=== PATIENT | male | born 1990 | race Caucasian/White ===

== ENCOUNTER 2021-03-26 14:42 | Observation (INO) | payer SELFPAY ==
[~2021-03-26] VITALS: Ht 185 cm; Wt 80.0 kg
--- NOTE | 2021-03-26 15:11 | ED Cardiac General ---
History of Present Illness General Chief Complaint: Cardiac/General Problems Stated Complaint: AFIB Source: patient Exam Limitations: no limitations History of Present Illness Date Seen by Provider: Mar 26, 2021 Time Seen by Provider: 15:00 Initial Comments Patient is a 30-year-old male who presents to the emergency department today with a chief complaint of irregular heartbeat and rapid heartbeat. Patient states that he has had issues with rapid heartbeat since he was a child. He has never had the arrhythmia caught on an EKG. 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 He states today that he feels a little nauseous and "worn out". He states he can feel his heartbeat in his eyes. He denies any recent illnesses such as fevers, chills, cough or congestion. No Covid concerns. He denies black or bloody stools or urinary complaints. He is on no daily medications and does not usually frequent to doctor. Denies any excessive stimulant use, occasionally will drink tea or sodas but states mostly in the last several days he has been drinking water. Patient states symptoms this morning started at around 8 AM. All other review of systems reviewed and negative except as stated. Severity: moderate Activities at Onset: emotional stress, rest Prior CP/Workup: no prior chest pain, no prior cardiac workup NTG SL MAGENTO WEB DEVELOPER: No ASA po MAGENTO WEB DEVELOPER: No Associated Systoms: Nausea/Vomiting (Nausea without vomiting), Shortness of Air (My) Allergies and Home Medications Allergies Coded Allergies: No Known Drug Allergies (Unverified , 03/26/21) Patient Home Medication List Home Medication List Reviewed: Yes Apixaban (Eliquis) 5 Mg Tablet, 5 MG PO BID Prescribed by: KYLIE DE LA TORRE on 03/27/21936 Citalopram Hydrobromide (Celexa) 20 Mg Tablet, 20 MG PO HS, (Reported) Entered as Reported by: TAYO CUBA on 03/26/21 888 Last Action: Reviewed Metoprolol Succinate (Metoprolol Succinate) 25 Mg Tab.er.24h, 25 MG PO DAILY Prescribed by: KYLIE DE LA TORRE on 03/27/21936 Review of Systems Review of Systems Constitutional: see HPI EENTM: No Symptoms Reported Respiratory: SOA With Exertion Cardiovascular: Irregular Heart Rate Gastrointestinal: Nausea Genitourinary: No Symptoms Reported Musculoskeletal: no symptoms reported Skin: no symptoms reported Psychiatric/Neurological: No Symptoms Reported Endocrine: No Symptoms Reported All Other Systems Reviewed Negative Unless Noted: Yes Physical Exam Vital Signs Vital Signs - First Documented 03/26/21 15:11 Pulse 168 Resp 18 B/P (MAP) 133/90 (104) Pulse Ox 98 O2 Delivery Room Air Capillary Refill : Height, Weight, BMI Height: '" Weight: lbs. oz. 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 Norm as Tested Skin: Normal Color, Warm/Dry Progress/Results/Core Measures Results/Orders Lab Results Laboratory Tests Test 03/26/21 15:15 Range/Units White Blood Count 18.4 H 4.3-11.0 10^3/uL Red Blood Count 4.72 4.30-5.52 10^6/uL Hemoglobin 14.9 13.3-17.7 g/dL Hematocrit 44 40-54 % Mean Corpuscular Volume 93 80-99 fL Mean Corpuscular Hemoglobin 32 25-34 pg Mean Corpuscular Hemoglobin Concent 34 32-36 g/dL Red Cell Distribution Width 12.6 10.0-14.5 % Platelet Count 587 H 130-400 10^3/uL Mean Platelet Volume 9.9 9.0-12.2 fL Immature Granulocyte % (Auto) 1 % Neutrophils (%) (Auto) 77 H 42-75 % Lymphocytes (%) (Auto) 7 L 12-44 % Monocytes (%) (Auto) 15 H 0-12 % Eosinophils (%) (Auto) 0 0-10 % Basophils (%) (Auto) 0 0-10 % Neutrophils # (Auto) 14.2 H 1.8-7.8 X 10^3 Lymphocytes # (Auto) 1.3 1.0-4.0 X 10^3 Monocytes # (Auto) 2.7 H 0.0-1.0 X 10^3 Eosinophils # (Auto) 0.0 0.0-0.3 10^3/uL Basophils # (Auto) 0.1 0.0-0.1 10^3/uL Immature Granulocyte # (Auto) 0.2 H 0.0-0.1 10^3/uL Neutrophils % (Manual) 86 % Lymphocytes % (Manual) 4 % Monocytes % (Manual) 10 % Eosinophils % (Manual) 0 % Basophils % (Manual) 0 % Band Neutrophils 0 % Polychromasia SLIGHT Sodium Level 140 135-145 MMOL/L Potassium Level 4.3 3.6-5.0 MMOL/L Chloride Level 99 98-107 MMOL/L Carbon Dioxide Level 27 21-32 MMOL/L Anion Gap 14 5-14 MMOL/L Blood Urea Nitrogen 11 7-18 MG/DL Creatinine 0.75 0.60-1.30 MG/DL Estimat Glomerular Filtration Rate 121 BUN/Creatinine Ratio 15 Glucose Level 112 H 70-105 MG/DL Calcium Level 10.6 H 8.5-10.1 MG/DL Magnesium Level 2.2 1.6-2.4 MG/DL Thyroid Stimulating Hormone (TSH) 0.69 0.35-4.94 UIU/ML Free Thyroxine 1.04 0.70-1.48 NG/DL My Orders Orders - MANNIE MAGANA MD Ed Iv/Invasive Line Start (03/26/21 15:01) Cbc With Automated Diff (03/26/21 15:01) Basic Metabolic Panel (03/26/21 15:01) Chest 1 View, Ap/Pa Only (03/26/21 15:01) Ekg Tracing (03/26/21 15:01) Ns Iv 1000 Ml (Sodium Chloride 0.9%) (03/26/21 15:15) Thyroid Stimulating Hormone (03/26/21 15:12) Free T4 (Free Thyroxine) (03/26/21 15:12) Magnesium (03/26/21 15:13) Diltiazem Injection (Cardizem Injection) (03/26/21 15:45) Manual Differential (03/26/21 15:15) Ekg Tracing (03/26/21 16:06) Enoxaparin Injection (Lovenox Injection) (03/26/21 16:15) Diltiazem Drip Pre-Mix (Cardizem Drip Pr (03/26/21 16:15) Medications Given in ED Vital Signs/I&O 03/26/21 15:11 Pulse 168 Resp 18 B/P (MAP) 133/90 (104) Pulse Ox 98 O2 Delivery Room Air Progress Progress Note : Time: 16:23 Progress Note Case discussed with Dr. De La Torre we will put him in the ICU overnight on Lovenox and a Cardizem drip. Per Dr. Block echo in the morning with possible cardioversion afterwards. Initial ECG Impression Date: Mar 26, 2021 Initial ECG Impression Time: 15:54 Initial ECG Rate: 158 Initial ECG Rhythm: A Fib/Flutter Initial ECG Impression: Atrial Fibrillation w/RVR Initial ECG Comparisson: No Previous ECG Available EKG : EKG Time: 16:41 Rate: 107 Rhythm: A Fib/Flutter ECG Comparisson: Changed ECG Impression: Atrial Fibrillation w/RVR (Atrial Flutter at 107) Diagnostic Imaging Diagonstic Imaging: Xray Plain Films/CT/US/NM/MRI: chest Comments [facility], [place] NAME: CAMILA FREGOSO I [facility] REC#: [id number] PT STATUS: REG ER : 1990 PHYSICIAN: MANNIE MAGANA MD ADMIT DATE: 03/26/21/ER Draft Date of Exam:03/26/21 CHEST 1 VIEW, AP/PA ONLY INDICATION: Palpitations Frontal chest obtained at 4:12 p.m. Heart is mildly enlarged. Mediastinal silhouette is unremarkable. There is some mild scarring or atelectasis in the left base. Lungs are otherwise clear. Is no pneumothorax or gross pleural fluid IMPRESSION: Cardiomegaly. There is some mild scarring or atelectasis in the left lateral base. Otherwise negative chest. Dictated on workstation # [id number] Dict: 03/26/21 1615 Trans: 03/26/21 1616 CV [id number] Interpreted by: OLIVA DECKER MD Electronically signed by: Critical Care Note Critical Care Start Time: 15:00 Stop Time: 16:25 Total Time (minutes) 30 minutes critical care time in the evaluation and management of this patient with A. fib/a flutter with rapid ventricular response. Time includes management with fluids, Cardizem, review of laboratory studies and interpretation of chest x-ray and EKGs. Discussion with admitting provider as well as cardiology Departure Communication (Admissions) Time/Spoke to Admitting Phy: 16:[address] De La Torre Time/Spoke to Consulting Phy: 15:[address] Mckayla Redding Primary Impression: Atrial flutter with rapid ventricular response Disposition: ADMITTED INPATIENT Condition: Stable Admissions Decision to Admit Reason: Admit from ER (General) Decision to Admit/Date: Mar 26, 2021 Time/Decision to Admit Time: 16:24 Departure-Patient Inst. Scripts Apixaban (Eliquis) 5 Mg Tablet 5 MG PO BID, #60 TAB Prov: KYLIE DE LA TORRE MD 03/27/21 Metoprolol Succinate (Metoprolol Succinate) 25 Mg Tab.er.24h 25 MG PO DAILY, #30 TAB Prov: KYLIE DE LA TORRE MD 03/27/21 MANNIE MAGANA MD Mar 26, 2021 15:11
[2021-03-26] MEDS ORDERED: NS IV 1000 ML 1,000 ML IV SCH (15:15)
[2021-03-26 15:36] LABS: POTASSIUM 4.3 MMOL/L (3.6-5.0)
[2021-03-26 15:37] LABS: CALCIUM 10.6 MG/DL (8.5-10.1)
[2021-03-26 15:41] LABS: BASOPHILS # (AUTO) 0.1 10^3/uL (0.0-0.1); BASOPHILS % (AUTO) 0 % (0-10); EOSINOPHILS % (AUTO) 0 % (0-10); HEMATOCRIT 44 % (40-54); HEMOGLOBIN 14.9 g/dL (13.3-17.7); LYMPHOCYTES # (AUTO) 1.3 X 10^3 (1.0-4.0); LYMPHOCYTES % (AUTO) 7 % (12-44); MEAN CORPUSCULAR HEMOGLOBIN 32 pg (25-34); MEAN CORPUSCULAR HGB CONC 34 g/dL (32-36); MEAN CORPUSCULAR VOLUME 93 fL (80-99); MEAN PLATELET VOLUME 9.9 fL (9.0-12.2); MONOCYTES # (AUTO) 2.7 X 10^3 (0.0-1.0); MONOCYTES % (AUTO) 15 % (0-12); NEUTROPHILS # (AUTO) 14.2 X 10^3 (1.8-7.8); NEUTROPHILS % (AUTO) 77 % (42-75); PLATELET COUNT 587 10^3/uL (130-400); WHITE BLOOD COUNT 18.4 10^3/uL (4.3-11.0)
[2021-03-26 15:42] LABS: CREATININE SERUM 0.75 MG/DL (0.60-1.30)
[2021-03-26 15:44] LABS: MAGNESIUM 2.2 MG/DL (1.6-2.4)
[2021-03-26 15:59] LABS: BAND NEUTROPHILS 0 %; BASOPHILS % (MANUAL) 0 %; EOSINOPHILS % (MANUAL) 0 %; LYMPHOCYTES % (MANUAL) 4 %; MONOCYTES % (MANUAL) 10 %; NEUTROPHILS % (MANUAL) 86 %; POLYCHROMASIA SLIGHT
[2021-03-26 16:05] LABS: FREE T4 (FREE THYROXINE) 1.04 NG/DL (0.70-1.48)
[2021-03-26] MEDS ORDERED: ENOXAPARIN 80 MG/0.8 ML (LOVENOX) SYR SC ONE (16:15)
[2021-03-26] MEDS ORDERED: dilTIAZem DRIP PRE-MIX 125 ML IV SCH ×2 (16:15→17:30)
--- NOTE | 2021-03-26 16:16 | Diagnostic Imaging Report ---
INDICATION: Palpitations Frontal chest obtained at 4:12 p.m. Heart is mildly enlarged. Mediastinal silhouette is unremarkable. There is some mild scarring or atelectasis in the left base. Lungs are otherwise clear. Is no pneumothorax or gross pleural fluid IMPRESSION: Cardiomegaly. There is some mild scarring or atelectasis in the left lateral base. Otherwise negative chest. Dictated by: Dictated on workstation # [id number]
[2021-03-26] MEDS ORDERED: NS IV 1000 ML 1,000 ML ONE (16:19)
--- NOTE | 2021-03-26 16:54 | Consultation-Cardiology ---
HPI-Cardiology Cardiology Consultation Date of Consultation 03/26/21 Date of Admission Time Seen by Provider: 16:51 Indication: Atrial fibrillation HPI 30 years old gentleman with family history of atrial fibrillation, he does not have any significant past history, has been having palpitation on and off for a while. Over the last week it became more pronounced and occurring more persistently and lasting longer. This morning the palpitations started around 6 in the morning and persisted until the evening, came into the emergency room for evaluation noted to be in atrial fibrillation with rapid ventricular response. He denied any chest pain. No syncope. No shortness of breath. Home Medications & Allergies Allergies: Coded Allergies: No Known Drug Allergies (Unverified , 03/26/21) Home Medication List Reviewed: Yes [id number]-Kamjwm Hx Past Medical History No known past medical history Family Medical History Family Medical Hx Father had atrial fibrillation grandparent had history of heart disease Review of Systems-General Review of Systems Constitutional: see HPI EENTM: see HPI, no symptoms reported Respiratory: no symptoms reported, see HPI Cardiovascular: see HPI; No chest pain, No edema, No Hx of Intervention; palpitations; No syncope, No vascular heart diseas, No other Gastrointestinal: no symptoms reported, see HPI Genitourinary: no symptoms reported, see HPI Musculoskeletal: no symptoms reported Skin: no symptoms reported Psychiatric/Neurological: No Symptoms Reported All Other Systems Reviewed Negative Unless Noted: Yes Reviewed Test Results Reviewed Test Results Lab Laboratory Tests Test 03/26/21 15:15 Range/Units White Blood Count 18.4 H 4.3-11.0 10^3/uL Red Blood Count 4.72 4.30-5.52 10^6/uL Hemoglobin 14.9 13.3-17.7 g/dL Hematocrit 44 40-54 % Mean Corpuscular Volume 93 80-99 fL Mean Corpuscular Hemoglobin 32 25-34 pg Mean Corpuscular Hemoglobin Concent 34 32-36 g/dL Red Cell Distribution Width 12.6 10.0-14.5 % Platelet Count 587 H 130-400 10^3/uL Mean Platelet Volume 9.9 9.0-12.2 fL Immature Granulocyte % (Auto) 1 % Neutrophils (%) (Auto) 77 H 42-75 % Lymphocytes (%) (Auto) 7 L 12-44 % Monocytes (%) (Auto) 15 H 0-12 % Eosinophils (%) (Auto) 0 0-10 % Basophils (%) (Auto) 0 0-10 % Neutrophils # (Auto) 14.2 H 1.8-7.8 X 10^3 Lymphocytes # (Auto) 1.3 1.0-4.0 X 10^3 Monocytes # (Auto) 2.7 H 0.0-1.0 X 10^3 Eosinophils # (Auto) 0.0 0.0-0.3 10^3/uL Basophils # (Auto) 0.1 0.0-0.1 10^3/uL Immature Granulocyte # (Auto) 0.2 H 0.0-0.1 10^3/uL Neutrophils % (Manual) 86 % Lymphocytes % (Manual) 4 % Monocytes % (Manual) 10 % Eosinophils % (Manual) 0 % Basophils % (Manual) 0 % Band Neutrophils 0 % Polychromasia SLIGHT Sodium Level 140 135-145 MMOL/L Potassium Level 4.3 3.6-5.0 MMOL/L Chloride Level 99 98-107 MMOL/L Carbon Dioxide Level 27 21-32 MMOL/L Anion Gap 14 5-14 MMOL/L Blood Urea Nitrogen 11 7-18 MG/DL Creatinine 0.75 0.60-1.30 MG/DL Estimat Glomerular Filtration Rate 121 BUN/Creatinine Ratio 15 Glucose Level 112 H 70-105 MG/DL Calcium Level 10.6 H 8.5-10.1 MG/DL Magnesium Level 2.2 1.6-2.4 MG/DL Thyroid Stimulating Hormone (TSH) 0.69 0.35-4.94 UIU/ML Free Thyroxine 1.04 0.70-1.48 NG/DL Physical Exam Physical Exam Vital Signs Vital Signs - First Documented 03/26/21 15:11 Pulse 168 Resp 18 B/P (MAP) 133/90 (104) Pulse Ox 98 O2 Delivery Room Air Capillary Refill : Less Than 3 Seconds Height, Weight, BMI Height: '" Weight: lbs. oz. kg; 23.00 BMI Method: General Appearance: No Apparent Distress, WD/WN, Anxious (mild) Eyes: Bilateral Eye Normal Inspection, Bilateral Eye PERRL, Bilateral Eye EOMI HEENT: PERRL/EOMI Neck: Normal Inspection Respiratory: Lungs Clear, Normal Breath Sounds, No Accessory Muscle Use, No Respiratory Distress Cardiovascular: Normal Peripheral Pulses, Irregularly Irregular, Tachycardia (170's) Gastrointestinal: Non Tender, Soft Back: Normal Inspection, No CVA Tenderness, No Vertebral Tenderness Extremity: Normal Inspection, Normal Range of Motion, Non Tender, No Calf Tenderness Neurologic/Psychiatric: Alert, Oriented x3, No Motor/Sensory Deficits, Normal Mood/Affect, 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 Planning to evaluate LEVON and cardioversion if he did not convert overnight. Palpitations secondary to atrial fibrillation. I discussed with him treatment option and discussed the possibility of ablation in the future. Clinical Quality Measures AMI/AHF: ASA po Prior to arrival: SHMUEL Garcia MD Mar 26, 2021 16:54
[2021-03-26 17:00] VITALS: BP 96/51
[2021-03-26] MEDS ORDERED: meTOprolol 5 MG/5 ML (LOPRESSOR) VIAL IV ONE (17:00)
--- NOTE | 2021-03-26 17:06 | History & Physical-Hospitalist ---
History of Present Illness HPI/Chief Complaint Patient is a 30-year-old male who presented to the emergency department a rapid heartbeat. He states he has had a long history of palpitations but never been diagnosed with anything. He felt more worn out tod ay and was nauseated and had a pounding heartbeat. His father was diagnosed with A. fib in his 30s. On arrival to the emergency department he was found to have a heart rate in the 170s and 180s when he was given a bolus of diltiazem. This improved his heart rate to the 110s so he was started on a Cardizem drip. He denies any drug or alcohol use. He denies any significant caffeine or energy drink use. He reports feeling better since his heart rate has improved. Source: patient Exam Limitations: no limitations Date Seen 03/26/21 Time Seen by a Provider: 17:01 Attending Physician Marina De La Torre MD PCP Dr Garvey Referring Physician Date of Admission Mar 26, 2021 at 16:08 Home Medications & Allergies Home Medications Reviewed patient Home Medication Reconciliation performed by pharmacy medication reconciliations pbx technician and/or nursing. Patients Allergies have been reviewed. Allergies Allergies Coded Allergies No Known Drug Allergies (Vzcnzwmcir91/22/21) Past Olqscwe-Htpnvf-Bakrjc Hx Patient Social History Employed/Student: employed Tobacco Use?: No Smoking Status: Never a Smoker Use of E-Cig and/or Vaping dev: No Substance use?: No Alcohol Use?: Yes Alcohol Frequency: Once in a while Immunizations Up To Date First/Initial COVID19 Vaccinat: Declined Current Status Primary Language: South African Preferred Spoken Language: South African Implanted or Applied Medical D: None Family Medical History Heart Disease (a fib) Review of Systems Constitutional: No chills, No fever, No malaise, No weakness EENTM: no symptoms reported Respiratory: No cough, No dyspnea on exertion, No short of breath Cardiovascular: chest pain; No edema, No Hx of Intervention; palpitations Gastrointestinal: No abdominal pain, No constipation, No diarrhea; loss of appetite; No nausea, No vomiting Genitourinary: no symptoms reported Musculoskeletal: no symptoms reported Skin: no symptoms reported Psychiatric/Neurological: No Symptoms Reported Physical Exam Physical Exam Vital Signs Vital Signs - First Documented 03/26/21 03/26/21 15:11 17:43 Temp 36.9 Pulse 168 Resp 18 B/P (MAP) 133/90 (104) Pulse Ox 98 O2 Delivery Room Air Capillary Refill : Less Than 3 Seconds Height, Weight, BMI Height: '" Weight: lbs. oz. kg; 23.00 BMI Method: General Appearance: No Apparent Distress, WD/WN HEENT: PERRL/EOMI, Moist Mucous Membranes Neck: Normal Inspection, Supple Respiratory: Lungs Clear, No Respiratory Distress Cardiovascular: No JVD, No Murmur, Irregularly Irregular, Tachycardia Gastrointestinal: Normal Bowel Sounds, Non Tender, Soft Extremity: Normal Capillary Refill, No Calf Tenderness, No Pedal Edema Neurologic/Psychiatric: Alert, Oriented x3, Normal Mood/Affect Skin: Normal Color, Warm/Dry Results Results/Procedures Labs Laboratory Tests 03/26/21 15:15 03/27/21 04:53 Patient resulted labs reviewed. Imaging: Reviewed Imaging Report Imaging [facility], [place] NAME: CAMILA FREGOSO I [facility] REC#: [id number] PT STATUS: REG ER : 1990 PHYSICIAN: MANNIE MAGANA MD ADMIT DATE: 03/26/21/ER Signed Date of Exam:03/26/21 CHEST 1 VIEW, AP/PA ONLY INDICATION: Palpitations Frontal chest obtained at 4:12 p.m. Heart is mildly enlarged. Mediastinal silhouette is unremarkable. There is some mild scarring or atelectasis in the left base. Lungs are otherwise clear. Is no pneumothorax or gross pleural fluid IMPRESSION: Cardiomegaly. There is some mild scarring or atelectasis in the left lateral base. Otherwise negative chest. Dictated by: Dictated on workstation # [id number] Dict: 03/26/21 1615 Trans: 03/26/21 1638 CVB [id number] Interpreted by: OLIVA DECKER MD Electronically signed by: OLIVA DECKER MD 03/26/21 0139 Assessment/Plan Admission Diagnosis New onset a-fib with RVR Admission Status: Observation Assessment and Plan New onset a-fib with RVR Rate improved with cardizem gtt Lovenox for stroke ppx Telemetry Cardiology consulted, appreciate recs Echo May need LEVON cardioversion, keep NPO after midnight TSH normal leukocytosis likely reactive Trend DVt ppx: Lovenox Diagnosis/Problems Diagnosis/Problems (1) Atrial flutter with rapid ventricular response Status: Acute Clinical Quality Measures AMI/AHF: ASA po Prior to arrival: No Copy Copies To 1: JACINTO GARVEY MD, KATELYN M MD Mar 26, 2021 17:06
[2021-03-26] MEDS: NS IV 1000 ML 1,000 ML IV SCH (17:39)
[2021-03-26] MEDS ORDERED: CITA20TA12 PO (17:46)
--- NOTE | 2021-03-26 18:28 | Tele-ICU Progress Note ---
Progress Note Video assessment done Available charting reviewed patient is seen by IM and cardiology MD = orders and notes in chart PAF - IV Lopressor and Cardizem drip - AC with d Lovenox - LEVON and cardioversion in plans leukocytosi s -? reactive - cxr clear - as per PCP NO TELE-ICU CONSULT REQUESTED CONTINUE TO MONITOR PER USUAL TELE-ICU PROTOCOL No need for Tele-ICU interventions Plans as delineated by bedside physicians / consultants Focused Exam Height, Weight, BMI Height: '" Weight: lbs. oz. kg; 23.22 BMI Method: LARRY VILLAR MD Mar 26, 2021 18:28
[2021-03-26] MEDS ORDERED: ACETAMINOPHEN 500 MG TAB (TYLENOL) PO PRN (18:45)
[2021-03-26] MEDS ORDERED: ONDANSETRON 4 MG/2 ML (SDV) Z0FRAN IV PRN (18:45)
[2021-03-26] MEDS ORDERED: ANTACID SUSP 30 ML UDC (MYLANTA) PO PRN (18:45)
[2021-03-26] MEDS ORDERED: MELATONIN 3 MG TABLET PO PRN (18:45)
[2021-03-26] MEDS ORDERED: MILK OF MAGNESIA 400 MG/5 ML 30 ML UDC PO PRN (18:45)
[2021-03-27] MEDS: NS IV 1000 ML 1,000 ML IV SCH ×2 (01:44→09:34)
[2021-03-27] MEDS ORDERED: ENOXAPARIN 80 MG/0.8 ML (LOVENOX) SYR SC SCH (05:00)
[2021-03-27 05:06] LABS: BASOPHILS # (AUTO) 0.1 10^3/uL (0.0-0.1); BASOPHILS % (AUTO) 1 % (0-10); EOSINOPHILS # (AUTO) 0.1 10^3/uL (0.0-0.3); EOSINOPHILS % (AUTO) 1 % (0-10); HEMATOCRIT 39 % (40-54); HEMOGLOBIN 13.5 g/dL (13.3-17.7); LYMPHOCYTES # (AUTO) 2.7 10^3/uL (1.0-4.0); LYMPHOCYTES % (AUTO) 19 % (12-44); MEAN CORPUSCULAR HEMOGLOBIN 32 pg (25-34); MEAN CORPUSCULAR HGB CONC 35 g/dL (32-36); MEAN CORPUSCULAR VOLUME 92 fL (80-99); MEAN PLATELET VOLUME 9.8 fL (9.0-12.2); MONOCYTES # (AUTO) 2.1 10^3/uL (0.0-1.0); MONOCYTES % (AUTO) 15 % (0-12); NEUTROPHILS # (AUTO) 8.8 10^3/uL (1.8-7.8); NEUTROPHILS % (AUTO) 63 % (42-75); PLATELET COUNT 422 10^3/uL (130-400)
[2021-03-27 05:33] LABS: CREATININE SERUM 0.64 MG/DL (0.60-1.30)
[2021-03-27 05:35] LABS: MAGNESIUM 2.1 MG/DL (1.6-2.4)
[2021-03-27 05:54] LABS: BAND NEUTROPHILS 1 %; EOSINOPHILS % (MANUAL) 1 %; LYMPHOCYTES % (MANUAL) 25 %; MONOCYTES % (MANUAL) 12 %; NEUTROPHILS % (MANUAL) 61 %
[2021-03-27] MEDS ORDERED: POTASSIUM CL 10MEQ/50ML IVPB 50 ML IV SCH (06:00)
[2021-03-27] MEDS ORDERED: MAGNESIUM 1 GM/100 ML IVPB 100 ML IV SCH (06:00)
[2021-03-27] MEDS ORDERED: KCL 20 MEQ TAB (K-DUR) PO SCH (06:00)
[2021-03-27] MEDS ORDERED: LIDOCAINE 2% VISCOUS 15 ML UDC ONE (08:34)
--- NOTE | 2021-03-27 09:16 | Tele-ICU Progress Note ---
Subjective Date Seen by a Provider: Mar 27, 2021 Time Seen by a Provider: 08:00 Subjective/Events-last exam This virtual visit was conducted using real time audio/video. Thank you for asking us to see this patient for afib/flutter HPC: Recent events: controlled a flutter overnight. PE: VSS HR aflutter 70-75/min. HEENT: No obvious masses, adenopathy or JVD. Chest: clear to auscultation. CV: RRR S1 S2 No murmur or added sounds. Abd: Non-tender. Bowel sounds Y. : Unremarkable. Hernandez N. PARTS COUNTER SALESPERSON/psychiatric: Alert and oriented, grossly intact. No obvious focal findings. Extremities: No edema. Capillary refill < 3 seconds. Skin: unremarkable. Results: Elevated WCC 14K but decreased. CXR w mild cardiomegaly A/P: Aflutter for cardioversion shortly. Available chart/ vitals / labs / images reviewed. Video assessment done using teleICU camera, rest of exam as per RN. Discussed with RN SYLVIE. Asked RN to reach out to eICU if any questions or concerns later. Time spent with patient/coordination of care with other health professionals (mins): 20 Sepsis Event Evaluation Height, Weight, BMI Height: '" Weight: lbs. oz. kg; 23.22 BMI Method: Exam Exam Patient acknowledged, consented, and participated in this virtual visit which was conducted using real time audio/video Vital Signs Date Time Temp Pulse Resp B/P (MAP) Pulse Ox O2 Delivery O2 Flow Rate FiO2 03/27/21 09:00 68 21 112/77 96 Room Air 03/27/21 08:28 36.9 03/27/21 08:00 97 Room Air 03/27/21 08:00 47 22 110/69 98 Room Air 03/27/21 07:00 69 03/27/21 07:00 56 21 108/74 96 Room Air 03/27/21 06:04 56 10 105/76 97 Room Air 03/27/21 05:00 85 35 116/73 96 Room Air 03/27/21 04:00 97 Room Air 03/27/21 04:00 59 104/59 95 Room Air 03/27/21 03:00 61 24 114/72 95 Room Air 03/27/21 02:00 59 7 113/67 95 Room Air 03/27/21 01:00 52 15 111/71 97 Room Air 03/27/21 01:00 73 03/27/21 00:00 81 16 116/74 95 Room Air 03/27/21 00:00 36.8 03/26/21 23:59 97 Room Air 03/26/21 23:00 82 13 130/85 98 Room Air 03/26/21 22:00 86 14 138/89 97 Room Air 03/26/21 21:00 86 24 124/91 99 Room Air 03/26/21 20:00 85 26 126/80 97 Room Air 03/26/21 20:00 97 Room Air 03/26/21 19:45 37.4 03/26/21 19:00 85 24 115/86 97 Room Air 03/26/21 19:00 86 03/26/21 18:00 83 17 123/87 98 Room Air 03/26/21 17:43 36.9 Room Air 03/26/21 17:19 133 03/26/21 17:15 105 11 123/84 99 Room Air 03/26/21 17:05 Room Air 03/26/21 17:00 98 18 96/51 96 Room Air 03/26/21 15:11 168 18 133/90 (104) 98 Room Air I & O 03/27/21 07:00 Intake Total 1600 ml Output Total 700 ml Balance 900 ml Height & Weight Height: '" Weight: lbs. oz. kg; 23.22 BMI Method: General Appearance: No Apparent Distress, WD/WN HEENT: PERRL/EOMI, Moist Mucous Membranes Neck: Normal Inspection, Supple Respiratory: Lungs Clear, No Respiratory Distress Cardiovascular: No JVD, No Murmur, Irregularly Irregular, Tachycardia Capillary Refill: Less Than 3 Seconds Peripheral Pulses: 1+ Dorsalis Pedis (R), 1+ Left Dors-Pedis (L) Extremity: Normal Capillary Refill, No Calf Tenderness, No Pedal Edema Neurologic/Psychiatric: Alert, Oriented x3, Normal Mood/Affect Skin: Normal Color, Warm/Dry Lymphatic: No Adenopathy Results Lab Laboratory Tests 03/26/21 15:15 03/27/21 04:53 Assessment/Plan Assessment/Plan See free text. Critical Care: Critically Ill Patient (see free text) TERESSA DAVIS MD Mar 27, 2021 09:16
--- NOTE | 2021-03-27 09:36 | Discharge Inst-Simple/Standard ---
Discharge Inst-Standard Discharge Medications New, Converted or Re-Newed RX: Transmitted to Pharmacy Patient Instructions/Follow Up Plan of Care/Instructions/FU: Please continue to take your medications as written. Please follow upw ith Dr Block and Dr Wing to follow up this hospital stay. Activity as Tolerated: Yes Discharge Diet: No Restrictions Return to The Hospital For: Chest pain, palpitations, shortness of breath, falls, if you feel you are getting worse. KYLIE BEARD MD Mar 27, 2021 09:36
[2021-03-27] MEDS ORDERED: MTP25TSR PO (09:37)
[2021-03-27] MEDS ORDERED: APIX5TAB PO (09:37)
--- NOTE | 2021-03-27 09:40 | Discharge Summary ---
Diagnosis/Chief Complaint Date of Admission Mar 26, 2021 at 16:08 Date of Discharge Discharge Date: Mar 27, 2021 Admission Diagnosis New onset a-fib with RVR Primary Care Discharge Diagnosis (1) Atrial flutter with rapid ventricular response Status: Acute Discharge Summary Discharge Physical Exam Allergies: Coded Allergies: No Known Drug Allergies (Unverified , 03/26/21) Vitals & I&Os Vital Signs Date Time Temp Pulse Resp B/P (MAP) Pulse Ox O2 Delivery O2 Flow Rate FiO2 03/27/21 11:25 03/27/21 10:00 87 98 Room Air 03/27/21 09:00 21 03/27/21 08:28 36.9 General Appearance: No Apparent Distress, WD/WN Cardiovascular: Regular Rate, Rhythm, No Murmur Gastrointestinal: Normal Bowel Sounds, Non Tender, Soft Neurologic/Psychiatric: Alert, Oriented x3 Hospital Course Patient was admitted to the hospital secondary to new onset atrial fibrillation with rapid ventricular rate. He was admitted to the ICU on a diltiazem drip which controlled his rate and we were planning for LEVON with cardioversion. Just prior to cardioversion he converted to normal sinus rhythm on his own. He was discharged home in stable and improved condition to follow-up with his primary care doctor Dr. Kris Bonilla. He is also to follow-up with Dr. Benz. He was started on Toprol and Eliquis and I discussed with Dr. Loco with [facility] to ensure access to discharge medication since he was unintentionally admitted to the hospitalist service and I do not have prescribing privileges at [facility]. She confirmed that these medications were available and filled at their pharmacy. Labs (last 24 hrs) Laboratory Tests 03/26/21 15:15: White Blood Count 18.4H, Red Blood Count 4.72, Hemoglobin 14.9, Hematocrit 44, Mean Corpuscular Volume 93, Mean Corpuscular Hemoglobin 32, Mean Corpuscular Hemoglobin Concent 34, Red Cell Distribution Width 12.6, Platelet Count 587H, Mean Platelet Volume 9.9, Immature Granulocyte % (Auto) 1, Neutrophils (%) (Auto) 77H, Lymphocytes (%) (Auto) 7L, Monocytes (%) (Auto) 15H, Eosinophils (%) (Auto) 0, Basophils (%) (Auto) 0, Neutrophils # (Auto) 14.2H, Lymphocytes # (Auto) 1.3, Monocytes # (Auto) 2.7H, Eosinophils # (Auto) 0.0, Basophils # (Auto) 0.1, Immature Granulocyte # (Auto) 0.2H, Neutrophils % (Manual) 86, Ly mphocytes % (Manual) 4, Monocytes % (Manual) 10, Eosinophils % (Manual) 0, Basophils % (Manual) 0, Band Neutrophils 0, Polychromasia SLIGHT, Sodium Level 140, Potassium Level 4.3, Chloride Level 99, Carbon Dioxide Level 27, Anion Gap 14, Blood Urea Nitrogen 11, Creatinine 0.75, Estimat Glomerular Filtration Rate 121, BUN/Creatinine Ratio 15, Glucose Level 112H, Calcium Level 10.6H, Magnesium Level 2.2, Thyroid Stimulating Hormone (TSH) 0.69, Free Thyroxine 1.04 03/27/21 04:53: White Blood Count 14.0H, Red Blood Count 4.24L, Hemoglobin 13.5, Hematocrit 39L, Mean Corpuscular Volume 92, Mean Corpuscular Hemoglobin 32, Mean Corpuscular Hemoglobin Concent 35, Red Cell Distribution Width 12.7, Platelet Count 422H, Mean Platelet Volume 9.8, Immature Granulocyte % (Auto) 1, Neutrophils (%) (Auto) 63, Lymphocytes (%) (Auto) 19, Monocytes (%) (Auto) 15H, Eosinophils (%) (Auto) 1, Basophils (%) (Auto) 1, Neutrophils # (Auto) 8.8H, Lymphocytes # (Auto) 2.7, Monocytes # (Auto) 2.1H, Eosinophils # (Auto) 0.1, Basophils # (Auto) 0.1, Immature Granulocyte # (Auto) 0.2H, Neutrophils % (Manual) 61, Lymphocytes % (Manual) 25, Monocytes % (Manual) 12, Eosinophils % (Manual) 1, Band Neutrophils 1, Sodium Level 137, Potassium Level 4.0, Chloride Level 105, Carbon Dioxide Level 21, Anion Gap 11, Blood Urea Nitrogen 9, Creatinine 0.64, Estimat Glomerular Filtration Rate 145, BUN/Creatinine Ratio 14, Glucose Level 98, Calcium Level 9.0, Magnesium Level 2.1 Patient resulted labs reviewed. Pending Labs Laboratory Tests 03/27/21 04:53: White Blood Count 14.0, Red Blood Count 4.24, Hemoglobin 13.5, Hematocrit 39, Mean Corpuscular Volume 92, Mean Corpuscular Hemoglobin 32, Mean Corpuscular Hemoglobin Concent 35, Red Cell Distribution Width 12.7, Platelet Count 422, Mean Platelet Volume 9.8, Immature Granulocyte % (Auto) 1, Neutrophils (%) (Auto) 63, Lymphocytes (%) (Auto) 19, Monocytes (%) (Auto) 15, Eosinophils (%) (Auto) 1, Basophils (%) (Auto) 1, Neutrophils # (Auto) 8.8, Lymphocytes # (Auto) 2.7, Monocytes # (Auto) 2.1, Eosinophils # (Auto) 0.1, Basophils # (Auto) 0.1, Immature Granulocyte # (Auto) 0.2, Neutrophils % (Manual) 61, Lymphocytes % (Manual) 25, Monocytes % (Manual) 12, Eosinophils % (Manual) 1, Band Neutrophils 1, Sodium Level 137, Potassium Level 4.0, Chloride Level 105, Carbon Dioxide Level 21, Anion Gap 11, Blood Urea Nitrogen 9, Creatinine 0.64, Estimat Glomerular Filtration Rate 145, BUN/Creatinine Ratio 14, Glucose Level 98, Calcium Level 9.0, Magnesium Level 2.1 Imaging: Reviewed Imaging Report Discussion & Recommendations Discharge Planning: >30 minutes discharge planning Discharge Home Medications: Active Scripts Active Eliquis (Apixaban) 5 Mg Tablet 5 Mg PO BID Metoprolol Succinate 25 Mg Tab.er.24h 25 Mg PO DAILY Reported Celexa (Citalopram Hydrobromide) 20 Mg Tablet 20 Mg PO HS Instructions to patient/family Please see electronic discharge instructions given to patient. Clinical Quality Measures AMI/AHF: ASA po Prior to arrival: No Copy Copies To 1: JACINTO GARVEY MD, KATELYN M MD Mar 27, 2021 09:40
--- NOTE | 2021-03-27 09:41 | Cardiology Progress Note ---
Subjective Date Seen by Provider: Mar 27, 2021 Time Seen by Provider: 09:39 Subjective/Events-last exam Patient was seen and evaluated, initially was in atrial flutter with controlled rate, I was planning to proceed with LEVON and cardioversion and he converted to sinus rhythm while the recreational therapy technician in the room. EKG showed sinus rhythm Review of Systems General: No Chills, No Night Sweats, No Fatigue, No Malaise, No Appetite, No Other HEENT: No Head Aches, No Visual Changes, No Eye Pain, No Ear Pain, No Dysphasia, No Sinus Congestion, No Post Nasal Drip, No Sore Throat, No Other Pulmonary: No Dyspnea, No Cough, No Pleuritic Chest Pain, No Other Cardiovascular: No: Chest Pain, Palpitations, Orthopnea, Paroxysmal Noc. Dyspnea, Edema, Lt Headedness, Other Objective-Cardiology Exam Last Set of Vital Signs Vital Signs 03/27/21 03/27/21 08:28 09:00 Temp 36.9 Pulse 68 Resp 21 B/P (MAP) 112/77 Pulse Ox 96 O2 Delivery Room Air I&O Intake and Output 03/27/21 00:00 Intake Total 1500 ml Output Total 700 ml Balance 800 ml Intake Oral 500 ml IV Total 1000 ml Output Urine Total 700 ml # Voids 2 Daily Weight Change No General: Alert, Oriented X3, Cooperative HEENT: Atraumatic, PERRLA Neck: Supple, No JVD, No Thyromegaly Lungs: Clear to Auscultation, Normal Air Movement Heart: Regular Rate, Normal S1, Normal S2, No Murmurs Abdomen: Normal Bowel Sounds, Soft, No Tenderness, No Hepatosplenomegaly, No Masses Extremities: No Clubbing, No Cyanosis, No Edema, Normal Pulses, No Tenderness/Swelling Skin: No Rashes, No Breakdown, No Significant Lesion Neuro: Normal Gait, Normal Speech, Strength at 5/5 X4 Ext, Normal Tone, Sensation Intact Psych/Mental Status: Mental Status NL, Mood NL Results Lab Laboratory Tests 03/26/21 15:15 03/27/21 04:53 A/P-Cardiology Admission Diagnosis Atrial fibrillation Palpitation Assessment/Plan Paroxysmal atrial fibrillation/flutter with rapid ventricular response, this morning patient was in atrial flutter with controlled rate, converted on Cardizem drip, I had a long discussion with the patient regarding treatment option including consideration for atrial flutter ablation. Patient is receptive but concerned about the cost of the procedure especially that he does not have insurance, he will discuss it with the social science instructor at [facility]. [id number] score of 0, I will treat him with oral anticoagulation agent for 1 month then switching to aspirin 325 mg daily as an outpatient Palpitations secondary to atrial fibrillation. Strong family history of atrial fibrillation Arrangement for follow-up as an outpatient SHMUEL BUNN MD Mar 27, 2021 09:41
== END 2021-03-27 10:08 | disposition home or self-care (01) ==
LOC: ER 14:47 → UNDOADMIN 16:08 → EDLOC 16:08 → ICU 16:08 → UNDODISIN 03-27 11:25
PROVIDERS: ADMIT Family Medicine; ATTEND Family Medicine
DX: I48.92 Unspecified atrial flutter (principal); I48.0 Paroxysmal atrial fibrillation; D72.829 Elevated white blood cell count, unspecified
CPT/HCPCS: 71045; 80048 ×2; 83735 ×2; 84439; 84443; 85007 ×2; 85027 ×2; 87081; 93005 ×2; 93306; 96372; 96374; 99285; G0378; 36415